=== PATIENT | male | born 1985 | race Caucasian/White ===

== ENCOUNTER 2020-10-13 19:40 | Emergency (ER) | payer BC, MEDICAID ==
[2020-10-13] MEDS ORDERED: Sodium Chloride 0.9% 10 ML Syringe FLUSH PRN (19:50)
[2020-10-13] MEDS ORDERED: Sodium Chloride 0.9% 1,000 ML IV STA ×2 (19:54→21:43)
[2020-10-13] MEDS ORDERED: Ondansetron 4 MG/2 ML SDV IVPUSH ONE ×2 (20:03→21:43)
--- NOTE | 2020-10-13 20:10 | EDM.PDOC ---
ED HPI GENERAL MEDICAL PROBLEM - General Chief Complaint: Syncope Stated Complaint: [facility] Time Seen by Provider: 10/13/20 19:44 Source of Information: Reports: Patient, RN Notes Reviewed History Limitations: Reports: No Limitations - History of Present Illness INITIAL COMMENTS - FREE TEXT/NARRATIVE: Patient is a 35-year-old male presenting to the emergency department via [facility] ambulance after experiencing a syncopal episode. He states that he hiked 5 miles this afternoon. Around 4:30 PM he ate some vegetable dip and chips which he states feels likely made him sick. Since that time, he has been experiencing nausea with diarrhea. He states he had 3 very large watery diarrheas. On the third episode, he states that he crawled to the bathroom because he was sweating and felt like he was going to vomit. He then also the urge to have a bowel movement. He was sitting on the toilet heaving and having a bowel movement when he passed out. He is not sure how long he was out for. He does not think he hit his head as he does not have a headache or any point tenderness on his head. He denies any significant abdominal pain other than some cramping when he has diarrhea. States that he continues to feel nauseous. He denies any chest pain or shortness of breath. He has no headache or vision changes. Does not feel dizzy lying down. He has no chronic medical conditions. Had no known sick contacts. EMS reports blood pressure was low at 60/30. He did receive a 500 mill bolus of normal saline in route which did improve his blood pressure. Blood pressure on triage was found to be normal at 117/77, pulse 74, respiratory rate 14, oxygen 100% on room air, temp 97.2. Treatments CHARGE LOADER: Reports: EKG, IV/IO - Related Data Allergies Allergy/AdvReac Type Severity Reaction Status Date / Time No Known Allergies Allergy Verified 10/13/20 19:52 Home Meds: Home Meds Escitalopram [Lexapro] 10 mg PO DAILY 10/13/20 [History] buPROPion [Wellbutrin] 75 mg PO BEDTIME 10/13/20 [History] Past Medical History Gastrointestinal History: Reports: GERD Psychiatric History: Reports: Depression Social & Family History - Tobacco Use Tobacco Use Status *Q: Never Tobacco User - Recreational Drug Use Recreational Drug Use: No ED ROS GENERAL - Review of Systems Review Of Systems: See Below Constitutional: Reports: Chills, Diaphoresis. Denies: Fever HEENT: Reports: No Symptoms. Denies: Vision Change Respiratory: Reports: No Symptoms Cardiovascular: Reports: No Symptoms Endocrine: Reports: No Symptoms GI/Abdominal: Reports: Diarrhea, Nausea. Denies: Abdominal Pain, Vomiting : Reports: No Symptoms Musculoskeletal: Reports: No Symptoms Skin: Reports: No Symptoms Neurological: Reports: Syncope. Denies: Confusion, Dizziness, Headache Psychiatric: Reports: No Symptoms Hematologic/Lymphatic: Reports: No Symptoms Immunologic: Reports: No Symptoms - Physical Exam Exam: See Below Exam Limited By: No Limitations General Appearance: Alert, WD/WN, No Apparent Distress Eye Exam: Bilateral Eye: Normal Inspection, PERRL Head Exam: Atraumatic, Normocephalic Respiratory/Chest: No Respiratory Distress, Lungs Clear, Normal Breath Sounds, No Accessory Muscle Use, Chest Non-Tender Cardiovascular: Normal Peripheral Pulses, Regular Rate, Rhythm, No Edema, No Gallop, No JVD, No Murmur, No Rub GI/Abdominal: Normal Bowel Sounds, Soft, Non-Tender, No Organomegaly, No Distention, No Abnormal Bruit, No Mass Neuro Exam (Abbreviated): Alert, Oriented, CN II-XII Intact, Normal Cognition, Normal Gait, Normal Reflexes, No Motor/Sensory Deficits Psychiatric: Normal Affect, Normal Mood Skin Exam: Warm, Dry, Intact, Normal Color, No Rash #1 Interpretation EKG Date: 10/13/20 Time: 20:13 Rhythm: NSR Rate (Beats/Min): 69 [place]: Normal P-Wave: Present QRS: Normal ST-T: Normal QT: Normal Course - Vital Signs Last Recorded V/S: Last Vital Signs Temp 97.2 F 10/13/20 19:47 Pulse 74 10/13/20 19:47 Resp 14 10/13/20 19:47 BP 117/77 10/13/20 19:47 Pulse Ox 100 10/13/20 19:47 Orthostatic Blood Pressure [ 99/84 Sitting] Orthostatic Blood Pressure [ 115/82 Supine] - Orders/Labs/Meds Orders: Active Orders 24 hr Category Date Time Status EKG Documentation Completion [RC] STAT Care 10/13/20 19:54 Active Orthostatic Vital Signs [RC] ASDIRECTED Care 10/13/20 21:33 Active Peripheral IV Care [RC] . DIRECTED Care 10/13/20 19:50 Active Sodium Chloride 0.9% [Normal Saline] 1,000 ml Med 10/13/20 21:43 Active IV NOW Sodium Chloride 0.9% [Saline Flush] Med 10/13/20 19:50 Active 10 ml FLUSH ASDIRECTED PRN Peripheral IV Insertion Adult [OM.PC] Stat Oth 10/13/20 19:50 Ordered Medication Orders Sodium Chloride (Normal Saline) 1,000 mls @ 999 mls/hr IV NOW STA Stop: 10/13/20 22:43 Last Admin: 10/13/20 21:56 Dose: 150 mls/hr Documented by: RO Sodium Chloride (Sodium Chloride 0.9% 10 Ml Syringe) 10 ml FLUSH ASDIRECTED PRN PRN Reason: Keep Vein Open Last Admin: 10/13/20 20:07 Dose: 10 ml Documented by: LAVINIA Labs: Laboratory Tests 10/13/20 10/13/20 10/13/20 Range/Units 19:46 19:46 19:46 WBC 11.25 H (4.23-9.07) K/mm3 RBC 5.81 (4.63-6.08) M/mm3 Hgb 17.3 (13.7-17.5) gm/dl Hct 49.9 (40.1-51.0) % MCV 85.9 (79.0-92.2) fl MCH 29.8 (25.7-32.2) pg MCHC 34.7 (32.2-35.5) g/dl RDW Std Deviation 41.7 (35.1-43.9) fL Plt Count 279 (163-337) K/mm3 MPV 9.9 (9.4-12.3) fl Neut % (Auto) 84.3 H (34.0-67.9) % Lymph % (Auto) 9.8 L (21.8-53.1) % [place] % (Auto) 4.5 L (5.3-12.2) % Eos % (Auto) 1.0 (0.8-7.0) Baso % (Auto) 0.2 (0.1-1.2) % Neut # (Auto) 9.49 H (1.78-5.38) K/mm3 Lymph # (Auto) 1.10 L (1.32-3.57) K/mm3 [place] # (Auto) 0.51 (0.30-0.82) K/mm3 Eos # (Auto) 0.11 (0.04-0.54) K/mm3 Baso # (Auto) 0.02 (0.01-0.08) K/mm3 Manual Slide Review Abnormal smear Sodium 142 (136-145) mEq/L Potassium 4.5 (3.5-5.1) mEq/L Chloride 104 (98-107) mEq/L Carbon Dioxide 27 (21-32) mEq/L Anion Gap 15.5 H (5-15) BUN 18 (7-18) mg/dL Creatinine 1.6 H (0.7-1.3) mg/dL Est Cr Clr Drug Dosing TNP Estimated GFR (MDRD) 49 (>60) mL/min BUN/Creatinine Ratio 11.3 L (14-18) Glucose 98 (74-106) mg/dL Calcium 8.9 (8.5-10.1) mg/dL Magnesium 1.9 (1.8-2.4) mg/dl Total Bilirubin 0.5 (0.2-1.0) mg/dL AST 36 (15-37) U/L ALT 76 H (16-63) U/L Alkaline Phosphatase 78 (46-116) U/L Troponin I < 0.017 (0.00-0.056) ng/mL C-Reactive Protein 0.7 (<1.0) mg/dL Total Protein 7.9 (6.4-8.2) g/dl Albumin 4.3 (3.4-5.0) g/dl Globulin 3.6 gm/dL Albumin/Globulin Ratio 1.2 (1-2) Meds: Medications Generic Name Dose Route Start Last Admin Trade Name Freq PRN Reason Stop Dose Admin Sodium Chloride 1,000 mls @ 999 mls/hr 10/13/20 21:43 10/13/20 21:56 Normal Saline IV 10/13/20 22:43 150 mls/hr NOW STA Administration Sodium Chloride 10 ml 10/13/20 19:50 10/13/20 20:07 Sodium Chloride 0.9% 10 Ml Syringe FLUSH 10 ml ASDIRECTED PRN Administration Keep Vein Open Discontinued Medications Generic Name Dose Route Start Last Admin Trade Name Randi PRN Reason Stop Dose Admin Sodium Chloride 1,000 mls @ 999 mls/hr 10/13/20 19:54 10/13/20 20:07 Normal Saline IV 10/13/20 20:54 999 mls/hr NOW STA Administration Ondansetron HCl 4 mg 10/13/20 20:03 10/13/20 20:07 Ondansetron 4 Mg/2 Ml Sdv IVPUSH 10/13/20 20:04 4 mg ONETIME ONE Administration Ondansetron HCl 4 mg 10/13/20 21:43 10/13/20 21:52 Ondansetron 4 Mg/2 Ml Sdv IVPUSH 10/13/20 21:44 4 mg ONETIME ONE Administration - Re-Assessments/Exams Free Text/Narrative Re-Assessment/Exam: Patient is a 35-year-old male presenting to the emergency department by [facility] after experiencing syncope. Patient description, has had 3 large episodes of watery diarrhea since 6 PM this evening. He is also felt nauseous but has not vomited. While having his third episode of diarrhea, he had a syncopal event. Description of events indicates likely vasovagal syncope. Vital signs on arrival to ER were stable. Neurologic exam is normal. He denies headache or vision changes. He has no chest pain or shortness of breath. I have ordered CBC, CMP, CRP, magnesium, EKG, troponin. We will give him a 1 L bolus of normal saline as well as Zofran 4 mg IV. 10/13/20 21:03 Hematology was significant for WBC minimally elevated 11.25, anion gap 15.5, creatinine 1.6, ALT 76. Troponin is negative. EKG G shows a normal sinus rhythm at 69 with no signs of acute ischemia. Patient still feels mildly nauseous but has had no further diarrhea since being in ER. He is also had no vomiting. Patient likely experienced vasovagal syncope. Discussed this with the patient. We will allow his IV fluids to finish and see how is doing. He does have a ride home when he is ready to go. 10/13/20 22:00 Patient's liter of fluid has finished infusing. KULWANT Manuel, attempted to get orthostatic vital signs, however when the patient went to a sitting position he became too nauseous and had to lay back down. Blood pressure went from 115/82 lying to 99/84 sitting. Heart rate 86 lying to 102 sitting. We will give another bolus of normal saline as well as Zofran 4 mg IV. 10/13/20 22:28 Patient is sitting up at the edge of the bed and doing well after the second liter of fluids and Zofran. He is currently drinking water. He is ready to be discharged home. Advised clear liquid diet for 24 to 72 hours. I will write an [employer] prescription for Zofran for nausea. Discharge instructions as documented. Departure - Departure Time of Disposition: 22:29 Disposition: Home, Self-Care 01 Condition: Good Clinical Impression: Vasovagal syncope, Gastroenteritis - Discharge Information *PRESCRIPTION DRUG MONITORING PROGRAM REVIEWED*: No *COPY OF PRESCRIPTION DRUG MONITORING REPORT IN PATIENT [facility]: No Instructions: Food Choices to Help Relieve Diarrhea, Adult, Syncope, [id number] Referrals: Ruthie Muro PA-C [Primary Care Provider] - Forms: ED Department Discharge Additional Instructions: You were seen in the emergency department today for evaluation with regards to nausea, diarrhea, and a syncopal episode at home. Blood work was completed and showed that she were mildly dehydrated but was otherwise normal. As we discussed, you likely fainted due to a vasovagal syncope episode. This results from stimulation of the vagal nerve with large losses of stool and fluid. While in the ER, he received 2 L IV fluid and nausea medication. This did improve your symptoms. You have been provided with a prescription for Zofran for nausea. Use this as prescribed. Recommend rest and a clear liquid diet for the next 24 to 72 hours. Once you are beginning to feel better you may slowly advance her diet as tolerated. Stick to a bland diet such as bananas, rice, apples, toast. Avoid fruit juices or dairy products until symptoms have completely resolved. If you should experience any new or worsening symptoms of concern, please not hesitate to return to the emergency department for reevaluation. Sepsis Event Note (ED) - Evaluation Sepsis Screening Result: No Definite Risk - Focused Exam Vital Signs: Vital Signs Temp Pulse Resp BP Pulse Ox 10/13/20 19:47 97.2 F 74 14 117/77 100 - My Orders Last 24 Hours: My Active Orders 10/13/20 19:50 Peripheral IV Care [RC] . DIRECTED Sodium Chloride 0.9% [Saline Flush] 10 ml FLUSH ASDIRECTED PRN Peripheral IV Insertion Adult [OM.PC] Stat 10/13/20 19:54 EKG Documentation Completion [RC] STAT 10/13/20 21:33 Orthostatic Vital Signs [RC] ASDIRECTED 10/13/20 21:43 Sodium Chloride 0.9% [Normal Saline] 1,000 ml IV NOW - Assessment/Plan Last 24 Hours: My Active Orders 10/13/20 19:50 Peripheral IV Care [RC] . DIRECTED Sodium Chloride 0.9% [Saline Flush] 10 ml FLUSH ASDIRECTED PRN Peripheral IV Insertion Adult [OM.PC] Stat 10/13/20 19:54 EKG Documentation Completion [RC] STAT 10/13/20 21:33 Orthostatic Vital Signs [RC] ASDIRECTED 10/13/20 21:43 Sodium Chloride 0.9% [Normal Saline] 1,000 ml IV NOW
== END 2020-10-13 22:52 | disposition home or self-care (01) ==
LOC: JD.ED 19:40
DX: R55 Syncope and collapse (principal); K52.9 Noninfective gastroenteritis and colitis, unspecified
CPT/HCPCS: 36415; 80053; 83735; 84484; 85025; 86140; 93005; 96374; 96376; 99284; J2405; J7030; 93010